=== PATIENT | male | born 1995 | race Caucasian/White ===

== ENCOUNTER 2016-07-15 07:42 | Day surgery (SDC) | payer OTHER ==
[~2016-07-15] VITALS: Ht 195.6 cm; Wt 85.7 kg
--- NOTE | ~2016-07-15 | ER ---
PATIENT'S NAME: SHASHI HARMON [facility] AGE: 21 Y [address] ROOM: [place] [address] LOCATION: [facility] [place] ADMIT DATE: 07/15/2016 ER/Outpatient Report DISCHARGE DATE: 07/15/2016 FAMILY PHYSICIAN: PHYSICIAN, NO ATTENDING PHYSICIAN: Sherwin Vazquez CHIEF COMPLAINT: Abdominal pain with nausea and vomiting. HISTORY OF PRESENT ILLNESS: The patient states that he was woken at 5:00 a.m. by abdominal pain. He has vomited twice. He has tried taking some antacids and liquid including water and vomited that up. The pain is rated as severe and is noted to be more prominent in the right lower quadrant. Upon initiation of pain, it was more generalized. He did drive himself to the emergency department. He denies any significant allergies, past medical, or surgical history. He states he is otherwise healthy. He does not take any medications regularly per report. PAST MEDICAL HISTORY: Documented on the record and reviewed by me. SOCIAL HISTORY: Documented on the record and reviewed by me. MEDICATIONS: Documented on the record and reviewed by me. ALLERGIES: DOCUMENTED ON THE RECORD AND REVIEWED BY ME. REVIEW OF SYSTEMS: All systems were reviewed and negative except as noted in the HPI. PHYSICAL EXAMINATION: VITAL SIGNS: Vital signs are blood pressure 140/71, pulse 57, respiratory rate is 20, temperature 97.3, SpO2 is 100% on room air. Pain is rated 7/10. GENERAL: Age-appropriate male, in obvious discomfort. No excruciating pain. No distress. NEUROLOGIC: Awake and alert. GCS 15. No obvious deficits. No asymmetry on exam. HEENT: Normocephalic, atraumatic. Eyes are PERRL. Oropharynx is clear. NECK: Supple. Trachea is midline. CHEST: Heart is regular rate and rhythm. No murmurs. LUNGS: Clear to auscultation bilateral. No rhonchi, wheezes, or rales. BACK: Nontender to palpation throughout. No CVA tenderness. PATIENT'S NAME: SHASHI HARMON [facility] AGE: 21 Y [address] ROOM: [place] [address] LOCATION: [facility] [place] ADMIT DATE: 07/15/2016 ER/Outpatient Report DISCHARGE DATE: 07/15/2016 FAMILY PHYSICIAN: PHYSICIAN, NO ATTENDING PHYSICIAN: Sherwin Vazquez ABDOMEN: Diffusely tender with most prominent at the right lower quadrant near McBurney's point. Negative for rebound or guarding. Obturator sign is negative. Psoas sign is positive. : Normal grossly. SKIN: Warm, dry, and intact. EXTREMITIES: Warm and well perfused. No obvious abnormalities. No deformities or edema. LABORATORY DATA AND X-RAYS: CT scan of the abdomen with dilated appendix and appendicular with no fat stranding or abscess. Labs notable for a leukocytosis of 20.7, otherwise grossly unremarkable. IMPRESSION: Early acute appendicitis. EMERGENCY DEPARTMENT COURSE: The patient was seen and evaluated as above. IV was initiated with fluids and nausea medication. Exam was very reassuring initially; however, there was some focal tenderness at McBurney's point. Labs were obtained, concerning for possible infection. CT scan was obtained as noted above. Presentation consistent with early appendicitis. Dr. Vazquez, general surgeon, was consulted and evaluated the patient. We will take him to the operating room for appendectomy today. Please see his dictation for further details of his plan of care. All questions were answered. The patient was taken the operating room after receiving morphine and Dilaudid for pain. MD SHANNA LOBO/katy /[id number] d: 07/15/161612 t: 07/23/16 2143, OUTPATIENT REPORT
--- NOTE | ~2016-07-15 | OR ---
PATIENT'S NAME: SHASHI HARMON [facility] AGE: 21 Y [address] ROOM: [place] [address] LOCATION: [facility] [place] ADMIT DATE: 07/15/2016 OR/Procedure Report DISCHARGE DATE: 07/15/2016 FAMILY PHYSICIAN: PHYSICIAN, NO ATTENDING PHYSICIAN: Sherwin Vazquez SURGEON: Sherwin Vazquez MD SWING MANAGER: DATE OF PROCEDURE: 07/15/2016 PREOPERATIVE DIAGNOSIS: Acute appendicitis. POSTOPERATIVE DIAGNOSIS: Acute appendicitis. PROCEDURE PERFORMED: Laparoscopic appendectomy. ANESTHESIA: General endotracheal. ESTIMATED BLOOD LOSS: 5 mL. SPECIMEN: Appendix. REASON FOR PROCEDURE: The patient is a 21-year-old gentleman, who presented to the emergency room with approximately 4-hour history of progressive abdominal pain. He was found to have an elevated white count in the emergency room and a CT scan was suggestive of early acute appendicitis. I discussed the risks and benefits of surgery with him and he elected to proceed with appendectomy. FINDINGS: The patient did have inflamed enlarged distal third of the appendix consistent with acute appendicitis. No evidence of rupture. PROCEDURE IN DETAIL: The patient was taken to the operating suite and placed in the supine position. After general endotracheal anesthesia was obtained, the abdomen was prepped with ChloraPrep and sterilely draped. Marcaine was infiltrated into the incision sites. A 1 cm infraumbilical incision was made. The umbilicus was elevated and a Veress needle was used to obtain a pneumoperitoneum. A 5 mm trocar was then passed across the abdominal wall. Next, a 5 mm left lower quadrant and 12 mm right lower quadrant trocars were both placed under direct visualization. Terminal ilium was adherent to the lateral side wall. We had to take this down with some scissors. We then exposed the appendix. The appendix was inflamed on the distal third of it and enlarged. There was little exudative reaction around it, but no perforation. The mesoappendix was divided with cautery. Endo-clips were then placed across the base of the appendix and the appendix divided between them. The appendiceal stump was cauterized. The appendix was brought out through the 12- PATIENT'S NAME: SHASHI HARMON [facility] AGE: 21 Y [address] ROOM: [place] [address] LOCATION: [facility] [place] ADMIT DATE: 07/15/2016 OR/Procedure Report DISCHARGE DATE: 07/15/2016 FAMILY PHYSICIAN: PHYSICIAN, NO ATTENDING PHYSICIAN: Sherwin Vazquez mm trocar without difficulty. We washed out around the right lower quadrant and pelvis, and all irrigation was removed. The pneumoperitoneum was evacuated and the trocars were withdrawn. The fascia in the right lower quadrant and at the umbilicus was closed with a Vicryl suture. The skin incisions were all closed with subcuticular Monocryl. Benzoin, Steri-Strips, and gauze dressings were applied. POSTPROCEDURE PLAN: The patient will be sent to recovery and discharged when awake and alert. He will receive Harrah for pain control. We will watch closely for any signs of complications or problems. MD CHAIM GLOVER/katy /[id number] d: 07/15/16 1820 t: 07/22/16 1405, OPERATIVE SUMMARY
--- NOTE | ~2016-07-15 | HP ---
PATIENT'S NAME: SHASHI HARMON [facility] AGE: 21 Y [address] ROOM: [place] [address] LOCATION: [facility] [place] ADMIT DATE: 07/15/2016 History & Physical DISCHARGE DATE: FAMILY PHYSICIAN: PHYSICIAN, NO ATTENDING PHYSICIAN: Sherwin Vazquez DATE OF SERVICE: CHIEF COMPLAINT: Vomiting and right-sided abdominal pain. HISTORY OF PRESENT ILLNESS: The patient is a 21-year-old male who was awakened with abdominal pain at 0500 hours this morning. The pain has gotten progressively worse and localized to the right lower quadrant and to the right mid abdomen. He has vomited a couple of times. He has felt chilled intermittently. He has never had pain like this before. Pain seems to be getting steadily worse. He has not had any diarrhea or bowel problems. He has no history of inflammatory bowel disease or Crohn's disease. He came in the emergency room, where he was found to have an elevated white count at just over 20,000. A CT scan showed changes consistent with early appendicitis. No evidence of rupture. PAST MEDICAL HISTORY: Really unremarkable. PAST SURGICAL HISTORY: He has had no previous surgeries. He has no chronic health problems. CURRENT MEDICATIONS: He takes no medications on a regular basis. ALLERGIES: HE REACTED TO AN ANTIBIOTIC WHEN HE WAS A KID, HE THOUGHT MAYBE IT WAS AUGMENTIN, BUT HE IS NOT SURE OF THIS. SOCIAL HISTORY: The patient is a nonsmoker. He drinks alcohol on an occasional basis. He is not . FAMILY HISTORY: Noncontributory. REVIEW OF SYSTEMS: Revealed the pain and a minimal cough today. No other significant findings. PATIENT'S NAME: SHASHI HARMON [facility] AGE: 21 Y [address] ROOM: [place], [place] [address] LOCATION: [facility] [place] ADMIT DATE: 07/15/2016 History & Physical DISCHARGE DATE: FAMILY PHYSICIAN: PHYSICIAN, NO ATTENDING PHYSICIAN: Sherwin Vazquez PHYSICAL EXAMINATION: GENERAL: The patient is a healthy, well-nourished, young male. He is alert and oriented. He is in no obvious distress or discomfort. VITAL SIGNS: Temperature is 97.3, blood pressure 140/71, pulse 57, respirations 20, and saturations are 100% on room air. HEENT: Pupils are equal. There is no scleral icterus. External ears, nose, and eyelids are unremarkable. He does have some mild acne. Oropharynx is clear without lesions or exudate. NECK: There are no masses or adenopathy. The trachea is midline. Breathing is nonlabored. LUNGS: Clear to auscultation without rales, rhonchi, or wheezing. HEART: Regular rate and rhythm. ABDOMEN: Soft. He does have bowel sounds present. He has moderate tenderness in the right lower quadrant. He is otherwise nontender. EXTREMITIES: No peripheral edema. No cyanosis or clubbing. He moves all 4 extremities well. There are no deformities. LABORATORY DATA AND IMAGING STUDIES: The patient's laboratory work and CT scan were reviewed. ASSESSMENT: A 21-year-old male with acute appendicitis. I discussed the diagnosis with him. I recommended that we proceed with appendectomy. He will receive preoperative IV antibiotics. The risks and benefits were all discussed. MD CHAIM GLOVER/katy /[id number] D: [id number] T: 403 HISTORY & PHYSICAL
[2016-07-15 08:25] LABS: BASOPHIL # 0.1 K/uL (0.0-0.2); BASOPHIL % 0.4 %; EOSINOPHIL # 0.2 K/uL (0.0-0.5); EOSINOPHIL % 0.8 %; HEMATOCRIT 43.6 % (37.0-53.0); HEMOGLOBIN 15.4 g/dL (12.0-17.0); IMMATURE GRANULOCYTE # 0.2 K/uL (0.0-0.3); IMMATURE GRANULOCYTE % 0.8 %; LYMPHOCYTE % 9.6 %; MCH 29.2 pg (27.0-34.0); MCHC 35.3 gm/dL (32.0-36.5); MCV 82.7 fl (83.0-98.0); MONOCYTE # 1.2 K/uL (0.0-1.0); MPV 10.4 fl (9.4-12.4); NEUTROPHIL % 82.4 %; NRBC % 0 /100WBC (0-0.00); PLATELET COUNT 235 K/uL (150-450); RBC 5.27 M/uL (4.00-6.00); RDW-CV 12.1 % (11.9-14.6)
[2016-07-15 08:27] LABS: WBC 20.7 K/uL (4.0-11.0)
[2016-07-15 08:28] LABS: BILIRUBIN URINE NEGATIVE (NEGATIVE); BLOOD URINE 10 /UL (NEGATIVE); GLUCOSE URINE NEGATIVE (NEGATIVE); KETONE URINE NEGATIVE (NEGATIVE); LEUKOCYTES URINE 25 /UL (NEGATIVE); NITRITE URINE NEGATIVE (NEGATIVE); PROTEIN URINE NEGATIVE (NEGATIVE); UROBILINOGEN URINE NORMAL (NORMAL)
[2016-07-15 08:29] LABS: COLOR URINE YELLOW (YELLOW); TURBIDITY URINE CLEAR (CLEAR)
[2016-07-15 08:34] LABS: INR - (THERAPEUTIC) 1.03 (0.92-1.07); PROTIME 10.8 SECONDS (9.8-11.4); PTT 26 SECONDS (25-32)
[2016-07-15 08:36] LABS: WBC URINE 0-2 #/HPF (NEGATIVE)
[2016-07-15 08:37] LABS: RBC URINE 0-2 #/HPF (NEGATIVE)
[2016-07-15 08:38] LABS: BACTERIA URINE RARE (NEGATIVE); EPITHELIAL URINE RARE #/HPF (NEGATIVE); MUCUS URINE 2+ (NEGATIVE)
[2016-07-15 08:39] LABS: ALBUMIN 4.1 gm/dL (3.5-5.0); ALK PHOS 75 IU/L (33-138); ALT 40 IU/L (12-78); ANION GAP 9.6 (10.0-19.0); AST 19 IU/L (10-40); BLOOD UREA NITROGEN 13 mg/dL (6-24); CALCIUM 8.7 mg/dL (8.5-10.5); CHLORIDE 108 mMol/L (96-110); CO2 27 mMol/L (22-32); ESTIMATED GFR (MDRD EQUATION) > 60; POTASSIUM 3.6 mMol/L (3.7-5.1); SODIUM 141 mMol/L (135-145); TOTAL BILIRUBIN 0.7 mg/dL (0.0-1.5); TOTAL PROTEIN 7.2 g/dL (6.0-8.4)
[2016-07-15] MEDS ORDERED: TYLENOL325 MG PO (10:49)
[2016-07-15] MEDS ORDERED: NORCO 5-325 TA1 EACH PO (13:05)
== END 2016-07-15 14:10 | disposition disaster alternative care site (69) ==
LOC: GMED 07:42 → GSDC 10:30
PROVIDERS: Emergency Medicine
PROC: 0DTJ4ZZ Resection of Appendix, Percutaneous Endoscopic Approach (ICD-10-PCS; principal; 2016-07-15)
DX: K35.80 Unspecified acute appendicitis (principal)
CPT/HCPCS: J1100; J1170; J1335; J2270; J2405; J7030